=== PATIENT | female | born 1995 | race American Indian/Alaskan Native ===

== ENCOUNTER 2016-10-21 03:44 | Inpatient (IN) | payer MEDICAID ==
[2016-10-21] MEDS ORDERED: LACTATED RINGERS 1,000 ML ONE (04:55)
[2016-10-21] MEDS ORDERED: LACTATED RINGERS 1,000 ML IV SCH ×2 (06:00→08:00)
[2016-10-21 06:01] LABS: Hematocrit 27.2 % (30.3-42.9); Hemoglobin 8.3 gm/dl (10.1-14.3); Mean Corpuscular HGB Conc 31 % (30-34); Red Blood Count 3.96 M/mm3 (3.65-5.03); Red Cell Distribution Width 18.6 % (13.2-15.2); White Blood Count 7.8 K/mm3 (4.5-11.0)
[2016-10-21 06:28] LABS: Mean Corpuscular Hemoglobin 21 pg (28-32); Mean Corpuscular Volume 69 fl (79-97); Platelet Count 164 K/mm3 (140-440)
--- NOTE | 2016-10-21 07:45 | History and Physical Report ---
History of Present Illness Date of examination: 10/21/16 Date of admission: 10/21/16 04:21 Past History Past Medical History: no pertinent history Past Surgical History: no surgical history [employer] History: chlamydia (prior to this gestation) Family/Genetic History: diabetes, heart disease, hypertension Social history: single - Obstetrical History Expected Date of Delivery: 11/03/16 Actual Gestation: 38 Week(s) 1 Day(s) : 2 Para: 1 Hx # Term Pregnancies: 1 Number of Living Children: 1 #1 year: 2,016 Birthweight: 2.948 kg Method of Delivery: Vaginal Gestational age at delivery: 37 Complications: none Medications and Allergies Allergies Allergy/AdvReac Type Severity Reaction Status Date / Time No Known Allergies Allergy Unverified 09/29/15 12:28 Home Medications Medication Instructions Recorded Confirmed Last Taken Type Vit W-Ca,Fe,FA(<1 mg) 1 each PO QDAY #30 tablet 08/06/16 Unknown Rx [ Vitamins] Active Meds: Active Medications Fentanyl (Sublimaze) 100 mcg IV Q2HR PRN PRN Reason: Pain Lactated Ringer's (Lactated Ringers) 1,000 mls @ 125 mls/hr IV DIRECT ROHAN Review of Systems All systems: negative - Vital Signs Vital signs: Vital Signs Pulse BP 85 118/74 10/21/16 03:58 10/21/16 03:58 Temp Pulse Resp BP Pulse Ox 99.1 F 83 18 119/67 10/21/16 07:15 10/21/16 07:21 10/21/16 07:15 10/21/16 07:21 - Physical Exam Breasts: Positive: normal Cardiovascular: Regular rate Lungs: Positive: Normal air movement Abdomen: Positive: normal appearance Genitourinary (Female): Positive: normal external genitalia Vulva: both: normal Vagina: Positive: normal moisture, other (clear fluid leaking with exam). Negative: discharge Cervix: Negative: lesion, discharge Uterus: Positive: normal size, normal contour Adnexa: both: normal Anus/Rectum: Positive: normal perianal skin, heme negative. Negative: rectal mass, hemorrhoids Extremities: Deep Tendon Reflex Grade: Normal +2 - Obstetrical FHR: auscultation normal Uterine Contraction Monitor Mode: External Cervical Dilatation: 3.5 Cervical Effacement Percentage: 90 station: -2 Uterine Contraction Pattern: Irregular Uterine Contraction Intensity: Mild Results Result Diagrams: 10/21/16 04:20 Abnormal lab results 10/21/16 Range/Units 04:20 Hgb 8.3 L (10.1-14.3) gm/dl Hct 27.2 L (30.3-42.9) % MCV 69 L (79-97) fl MCH 21 L (28-32) pg RDW 18.6 H (13.2-15.2) % All other labs normal. Assessment and Plan A. record not available at admission SROM @ 02:30 this AM, clear fluid Irregular ctx GBS UNK P Routine admisssion, labs, VS Pain management per pt request Pitocin augmentation Anticipate
[2016-10-21] MEDS ORDERED: ZOFRAN IV PRN ×2 (07:59→12:07)
[2016-10-21] MEDS ORDERED: ePHEDrine SULFATE IV PRN (07:59)
[2016-10-21] MEDS ORDERED: SUBLIMAZE IV PRN (07:59)
[2016-10-21] MEDS ORDERED: BRETHINE SUB-Q PRN (07:59)
[2016-10-21] MEDS ORDERED: MINERAL OIL PO PRN (07:59)
[2016-10-21] MEDS ORDERED: BRETHINE IVP PRN (07:59)
[2016-10-21] MEDS ORDERED: PITOCin/NS 30 UNIT/500ML 500 ML IV SCH ×2 (08:00)
[2016-10-21] MEDS ORDERED: PITOCin/NS 20 UNIT/1000ML DRIP 1,000 ML IV SCH (08:00)
[2016-10-21] MEDS: SUBLIMAZE IV PRN ×2 (09:38→11:10)
[2016-10-21] MEDS ORDERED: XYLOCAINE 2% INFILTRATI ONE (11:27)
--- NOTE | 2016-10-21 12:06 | Procedure Note ---
OB Delivery Note - Delivery Date of Delivery: 10/21/16 (@ 11:27) Surgeon: ROSALINA PEREZ Estimated blood loss: <100cc - Vaginal Intrapartum events: none Delivery induction: oxytocin Delivery monitor: external FHT Route of delivery: Delivery placenta: spontaneous Episiotomy: none Delivery laceration: 2nd degree (ML) Delivery repair: chromic (3.[address] 1) Anesthesia: local - Infant A at 1 minute: 8 at 5 minutes: 9 Gender: Male (Vigorous boy placed skin/skin while cord pulsed, then C&C and to warmer for assessment and returned to mom afterwards. Plans . Wt 2776 gm/6lb2oz)
[2016-10-21] MEDS ORDERED: DERMOPLAST TP PRN (12:07)
[2016-10-21] MEDS ORDERED: PHENERGAN PR PRN (12:07)
[2016-10-21] MEDS ORDERED: DULCOLAX PR PRN (12:07)
[2016-10-21] MEDS ORDERED: MILK OF MAGNESIA PO PRN (12:07)
[2016-10-21] MEDS ORDERED: TUCKS PAD TP PRN (12:07)
[2016-10-21] MEDS ORDERED: LANSINOH TP PRN (12:07)
[2016-10-21] MEDS ORDERED: NORCO 5/325 PO PRN (12:07)
[2016-10-21] MEDS ORDERED: TYLENOL PO PRN (12:07)
[2016-10-21] MEDS ORDERED: SODIUM CHLORIDE FLUSH SYRINGE 10 ML IV NR (13:00)
[2016-10-21] MEDS: MOTRIN PO SCH (18:11)
[2016-10-22] MEDS: MOTRIN PO SCH ×3 (00:21→12:15)
[2016-10-22 00:55] LABS: Hematocrit 25.6 % (30.3-42.9); Hemoglobin 7.8 gm/dl (10.1-14.3)
[2016-10-22] MEDS ORDERED: BOOSTRIX IM ONE (06:00)
--- NOTE | 2016-10-22 09:21 | Discharge Summary ---
Providers - Providers Date of Admission: 10/21/16 04:21 Date of discharge: 10/22/16 Attending physician: MELY CAR MD Primary care physician: MELY CAR MD Hospitalization Reason for admission: active labor Delivery: Episiotomy: midline Laceration: none Incision: normal Other procedures: none complications: none Discharge diagnosis: IUP at term delivered baby: male Condition at discharge: Good Disposition: DISCHARGED TO HOME OR SELFCARE Plan - Provider Discharge Summary Activity: routine, no sex for 6 weeks, no strenuous exercise Diet: routine Instructions: routine Additional instructions: [] Smoking cessation referral if applicable(refer to patient education folder for contact #) [] Refer to [facility] Booklet Call your doctor immediately for: * Fever > 100.5 * Heavy vaginal bleeding ( >1 pad per hour) * Severe persistent headache * Shortness of breath * Reddened, hot, painful area to leg or breast * Drainage or odor from incision. * Keep incision clean and dry at all times and follow doctor's instructions regarding bathing/showering - Follow up plan Follow up: [facility] [Provider Group] - 6 Weeks
--- NOTE | 2016-10-22 09:25 | Progress Note ---
Assessment and Plan A: PPD # 1, stable P: Discharge home today records obtained, GBS neg Subjective - Subjective Date of service: 10/22/16 Patient reports: appetite normal : doing well Objective - Vital Signs Latest vital signs: Vital Signs Temp Pulse Pulse Pulse Resp BP BP 10/22/16 01:18 98.5 F 80 18 119/65 10/21/16 19:50 98.5 F 83 20 117/62 10/21/16 16:05 98.4 F 76 22 124/70 10/21/16 13:20 98 F 75 18 132/74 10/21/16 12:57 92 H 129/77 10/21/16 12:42 83 122/73 10/21/16 12:28 83 116/68 10/21/16 12:13 87 131/83 10/21/16 11:57 85 138/84 10/21/16 11:45 97.7 F 20 10/21/16 11:42 97 H 132/77 10/21/16 11:28 99 H 128/76 10/21/16 11:19 91 H 10/21/16 11:14 91 H 10/21/16 11:09 94 H 10/21/16 11:04 95 H 10/21/16 10:59 91 H 10/21/16 10:54 88 10/21/16 10:49 99 H 10/21/16 10:47 98 H 123/76 10/21/16 10:44 97 H 10/21/16 10:39 104 H 10/21/16 10:34 103 H 10/21/16 10:29 102 H 10/21/16 10:24 105 H 10/21/16 10:19 96 H 10/21/16 10:14 102 H 10/21/16 10:13 94 H 10/21/16 10:09 105 H 10/21/16 10:04 103 H 10/21/16 09:59 111 H 10/21/16 09:54 96 H 10/21/16 09:49 86 10/21/16 09:47 85 129/70 10/21/16 09:44 87 10/21/16 09:39 90 10/21/16 09:34 97 H 10/21/16 09:29 100 H 10/21/16 09:23 108 H Pulse Ox 10/22/16 01:18 10/21/16 19:50 10/21/16 16:05 10/21/16 13:20 10/21/16 12:57 10/21/16 12:42 10/21/16 12:28 10/21/16 12:13 10/21/16 11:57 10/21/16 11:45 10/21/16 11:42 10/21/16 11:28 10/21/16 11:19 99 10/21/16 11:14 97 10/21/16 11:09 97 10/21/16 11:04 99 10/21/16 10:59 97 10/21/16 10:54 99 10/21/16 10:49 94 10/21/16 10:47 10/21/16 10:44 98 10/21/16 10:39 97 10/21/16 10:34 97 10/21/16 10:29 98 10/21/16 10:24 98 10/21/16 10:19 98 10/21/16 10:14 96 10/21/16 10:13 85 10/21/16 10:09 97 10/21/16 10:04 97 10/21/16 09:59 97 10/21/16 09:54 97 10/21/16 09:49 97 10/21/16 09:47 10/21/16 09:44 97 10/21/16 09:39 98 10/21/16 09:34 99 10/21/16 09:29 98 10/21/16 09:23 96 Intake and Output 10/21/16 10/22/16 10/22/16 22:59 06:59 14:59 Intake Total 320 560 Output Total 1400 Balance -1080 560 Intake: Oral 200 200 Intake, Free Water 120 360 Output: Urine 1400 Void 1400 Other: Total, Intake Amount 200 200 Total, Output Amount 700 # Voids Void 1 1 - Exam Breasts: Present: deferred Cardiovascular: Present: Regular rate Lungs: Present: Clear to auscultation Abdomen: Present: normal appearance, soft Vulva: both: normal Uterus: Present: fundal height below umbilicus Extremities: Present: normal Deep Tendon Reflex Grade: Normal +2 - Labs Labs: Abnormal lab results 10/22/16 Range/Units 00:25 Hgb 7.8 L (10.1-14.3) gm/dl Hct 25.6 L (30.3-42.9) %
[2016-10-22] MEDS ORDERED: PRENATAL VITAMIN PO SCH (10:00)
[2016-10-22] MEDS ORDERED: FLUARIX QUAD 2016-2017(36 MOS+) IM ONE (11:58)
[2016-10-22 16:12] VITALS: BP 140/69
== END 2016-10-22 13:40 | disposition home or self-care (01) | DRG 775 ==
LOC: TRG 03:44 → LD 04:21 → OB 13:09
PROVIDERS: ADMIT Obstetrics & Gynecology; ATTEND Obstetrics & Gynecology
PROC: 10E0XZZ Delivery of Products of Conception, External Approach (ICD-10-PCS; principal; 2016-10-21)
PROC: 0KQM0ZZ Repair Perineum Muscle, Open Approach (ICD-10-PCS; 2016-10-21)
PROC: 3E033VJ Introduction of Other Hormone into Peripheral Vein, Percutaneous Approach (ICD-10-PCS; 2016-10-21)
PROC: 0W8NXZZ Division of Female Perineum, External Approach (ICD-10-PCS; 2016-10-21)
DX: O70.1 Second degree perineal laceration during delivery (principal); Z37.0 Single live birth; Z3A.38 38 weeks gestation of pregnancy; Z82.49 Family history of ischemic heart disease and other diseases of the circulatory system; Z83.3 Family history of diabetes mellitus
CPT/HCPCS: 36415; 85014; 85018; 85027; 86850; 86900; 86901; 90471; 90686; 90715; A6250; G0008; J2590; J3010; J7120